=== PATIENT | female | born 1965 | race Caucasian/White ===

== ENCOUNTER → 2016-06-14 | Outpatient (CLI) | payer OTHER ==
[2016-06-14 10:49] LABS: BASO % 0.4 % (0.0-1.0); EOS # 0.2 10*3/uL (0.0-0.4); EOS % 2.8 % (1.0-4.0); HEMATOCRIT 40.6 % (37.0-47.0); HEMOGLOBIN 13.5 g/dl (12.0-16.0); MEAN CELL VOLUME 84.4 fl (81.0-99.0); MEAN CORPUSCULAR HGB 28.1 pg (27.0-31.0); MEAN CORPUSCULAR HGB CONC 33.3 g/dl (33.0-37.0); MEAN PLATELET VOLUME 10.9 fl (9.6-12.3); MONO # 0.4 10*3/uL (0.1-1.0); MONO % 5.4 % (3.0-9.0); NEUT # 5.4 10*3/uL (2.3-7.9); PLATELET COUNT AUTOMATED 228 10*3/uL (130-400); RED BLOOD COUNT 4.81 10*6/uL (4.10-5.10); RED CELL DISTRI WIDTH 13.5 % (0-14.5); WHITE BLOOD COUNT 8.1 10*3/uL (4.8-10.8)
[2016-06-14 11:20] LABS: BILIRUBIN, TOTAL 0.4 mg/dl (0.2-1.0); CHLORIDE 105 mmol/L (98-107); POTASSIUM 3.6 mmol/L (3.5-5.1); SODIUM 140 mmol/L (136-145)
[2016-06-14 11:27] LABS: ALBUMIN 3.2 gm/dl (3.1-4.5); ALKALINE PHOSPHATASE 77 U/L (45-117); BUN 13 mg/dl (7-24); C-REACTIVE PROTEIN 1.53 MG/DL (0-0.3); CARBON DIOXIDE 28 mmol/L (21-32); CHOLESTEROL 179 mg/dL (<200); EST GLOM FILT AFRICAN AMERICAN > 60 ml/min; FREE T4 1.09 ng/dl (0.76-1.46); GLUCOSE 107 mg/dL (65-99); HDL CHOLESTEROL 61 mg/dl (40-60); LDL CHOLESTEROL 93 mg/dL (9-159); SGOT/AST 30 IU/L (3-35); SGPT/ALT 44 U/L (12-78); THYROID STIM HORMONE (HS) 0.615 uIU/ml (0.358-4.75); TOTAL PROTEIN 6.9 gm/dL (6.4-8.2); TRIGLYCERIDES 127 mg/dl (<150); VLDL CHOLESTEROL 25 mg/dL (6-40)
[2016-06-14 11:45] LABS: HEMOGLOBIN A1c 6.1 % (4.8-5.6)
[2016-06-15 08:12] LABS: RHEUMATOID ARTHRITIS FACTOR <10.0 IU/mL (0.0-13.9)
== END | disposition home or self-care (01) ==
LOC: LAB 10:21
PROVIDERS: Specialist
DX: M17.11 Unilateral primary osteoarthritis, right knee (principal); E88.81 Metabolic syndrome and other insulin resistance; E03.9 Hypothyroidism, unspecified; E55.9 Vitamin D deficiency, unspecified; M79.1 Myalgia; M25.561 Pain in right knee; M25.551 Pain in right hip; M25.552 Pain in left hip; M54.5 Low back pain; M43.16 Spondylolisthesis, lumbar region; M47.897 Other spondylosis, lumbosacral region

== ENCOUNTER 2023-05-06 19:57 | Emergency (ER) | payer BC ==
[~2023-05-06] VITALS: Ht 172.7 cm; Wt 144.2 kg
[2023-05-06] MEDS ORDERED: UNITHROID88 MCG PO (20:10)
[2023-05-06] MEDS ORDERED: TRIAMTERENE-HC1 EACH PO (20:10)
[2023-05-06] MEDS ORDERED: ESCITALOPRAM OX20 MG PO (20:10)
[2023-05-06] MEDS ORDERED: LISINOPRIL10 M1 PO (20:11)
[2023-05-06] MEDS ORDERED: CEPHALEXIN500 M1 PO (20:28)
[2023-05-06] MEDS ORDERED: CEPHALEXIN 500 MG CAP PO ONE (20:35)
== END 2023-05-06 20:29 | disposition home or self-care (01) ==
LOC: ED 19:57
DX: L73.9 Follicular disorder, unspecified (principal); I10 Essential (primary) hypertension; F32.A Depression, unspecified; Z90.710 Acquired absence of both cervix and uterus; Z98.51 Tubal ligation status; Z90.49 Acquired absence of other specified parts of digestive tract

== ENCOUNTER 2023-11-18 21:43 | Emergency (ER) | payer BC ==
[~2023-11-18] VITALS: Ht 172.7 cm; Wt 145.1 kg
[~2023-11-18 21:43] MED LIST: CEPHALEXIN500 M1 PO; ESCITALOPRAM OX20 MG PO; LISINOPRIL10 M1 PO; TRIAMTERENE-HC1 EACH PO; UNITHROID88 MCG PO
[2023-11-18] MEDS ORDERED: Amoxicillin/Clavulanate Pota 875 MG TAB PO ONE (22:05)
[2023-11-18] MEDS ORDERED: AMOX-CLAV 875-1 EACH PO (22:13)
[2023-11-18] MEDS ORDERED: CETRAXAL1 EACH OT (22:13)
== END 2023-11-18 22:35 | disposition home or self-care (01) ==
LOC: ED 21:43
DX: H66.92 Otitis media, unspecified, left ear (principal); H60.92 Unspecified otitis externa, left ear; I10 Essential (primary) hypertension; E11.9 Type 2 diabetes mellitus without complications; F32.A Depression, unspecified; Z90.49 Acquired absence of other specified parts of digestive tract; Z98.51 Tubal ligation status; Z90.710 Acquired absence of both cervix and uterus

== ENCOUNTER 2024-08-18 06:03 | Emergency (ER) | payer BC ==
[~2024-08-18] VITALS: Ht 172.7 cm; Wt 145.1 kg
[~2024-08-18 06:03] MED LIST changes: +AMOX-CLAV 875-1 EACH PO; +CETRAXAL1 EACH OT
[2024-08-18] MEDS ORDERED: CELECOXIB200 M1 PO (06:20)
[2024-08-18] MEDS ORDERED: NEURONTIN300 MG PO (06:21)
[2024-08-18] MEDS ORDERED: PREDNISONE20 M1 PO (06:31)
[2024-08-18] MEDS ORDERED: VIBRAMYCIN100 MG PO (06:31)
[2024-08-18] MEDS ORDERED: Dexamethasone Sodium Phospha 20 MG/5 ML VIAL IM ONE (06:35)
== END 2024-08-18 06:49 | disposition home or self-care (01) ==
LOC: ED 06:03
DX: L03.115 Cellulitis of right lower limb (principal); Z96.651 Presence of right artificial knee joint; Z79.899 Other long term (current) drug therapy; Z90.711 Acquired absence of uterus with remaining cervical stump